=== PATIENT | female | born 1990 | race Hispanic/Latino ===

== ENCOUNTER 2017-08-25 16:47 | Emergency (ER) | payer SELFPAY ==
[2017-08-25 17:40] LABS: APPEARANCE,URINE Cloudy (CLEAR); BILIRUBIN,URINE Negative (NEGATIVE); COLOR,URINE Yellow (YELLOW); GLUCOSE, URINE (UA) Negative (NEGATIVE); KETONES,URINE Negative (NEGATIVE); LEUKOCYTE ESTERASE ,URINE Trace (NEGATIVE); NITRATE,URINE Negative (NEGATIVE); OCCULT BLOOD,URINE Negative (NEGATIVE); PH,URINE 5.5 (5.0-8.0); PROTEIN,URINE Negative (NEGATIVE); UROBILINOGEN,URINE 0.2 mg/dL (0.2-1.0)
[2017-08-25 17:44] LABS: BASOPHILS % (AUTO) 0.5 % (0.0-5.0); EOSINOPHILS % (AUTO) 1.1 % (0.0-8.0); HEMATOCRIT 30.4 % (36-48); LYMPHOCYTES % (AUTO) 22.9 % (21.0-51.0); MEAN CORPUSCULAR HEMOGLOBIN 18.9 pg (27.0-33.0); MEAN CORPUSCULAR HGB CONC 29.2 g/dL (32.0-36.0); MEAN CORPUSCULAR VOLUME 64.8 fL (79-99); MONOCYTES % (AUTO) 5.7 % (3.0-13.0); NEUTROPHILS % (AUTO) 69.8 % (40.0-77.0); PLATELET COUNT (AUTO) 368 K/uL (130-400); RED CELL DISTRIBUTION WIDTH 18.7 % (11.0-15.5); WHITE BLOOD COUNT (AUTO) 11.7 K/uL (4.8-10.8)
[2017-08-25 17:45] LABS: HCG,QUAL RESULT NEGATIVE (NEGATIVE)
[2017-08-25 17:51] LABS: BACTERIA,URINE Few /HPF (None Seen); RBC,URINE 0-1 /HPF (0-1); SQUAMOUS EPITHELIAL CELL,UR Few /LPF (0-2)
[2017-08-25] MEDS ORDERED: ONDANSETRON HCL 4 MG/2 ML VIAL ONE (17:54)
[2017-08-25] MEDS ORDERED: SODIUM CHLORIDE 0.9% 1000ML 1,000 ML IV ONE (17:54)
[2017-08-25 17:55] LABS: CREATININE 0.6 mg/dL (0.5-1.5); POTASSIUM 3.7 mmol/L (3.5-5.1)
[2017-08-25] MEDS ORDERED: MORPHINE SULFATE 8 MG/ML VIAL ONE (17:55)
[2017-08-25 18:00] LABS: ALBUMIN 3.6 g/dL (3.5-5.0); BILIRUBIN,TOTAL 0.3 mg/dL (0.2-1.0); TOTAL PROTEIN, SERUM 8.6 g/dL (6.0-8.3)
[2017-08-25] MEDS ORDERED: IOPAMIDOL-370 75 ML VIAL IV ONE (18:04)
== END 2017-08-25 19:24 | disposition home or self-care (01) ==
LOC: EDH 16:47
DX: N83.291 Other ovarian cyst, right side (principal)
CPT/HCPCS: 36415; 74177; 80053; 81001; 81025; 85025; 96361; 96374; 96375; 99285; J2270; J2405; J7030; Q9967

== ENCOUNTER 2022-05-10 13:15 | Emergency (ER) | payer BC ==
[~2022-05-10] VITALS: Ht 157.5 cm; Wt 122.5 kg
[2022-05-10] MEDS ORDERED: LORAZEPAM 1 MG TABLET PO ONE (13:30)
[2022-05-10 13:41] LABS: BASOPHILS % (AUTO) 0.4 % (0.0-5.0); EOSINOPHILS % (AUTO) 4.1 % (0.0-8.0); HEMATOCRIT 34.6 % (36-48); LYMPHOCYTES % (AUTO) 38.9 % (21.0-51.0); MEAN CORPUSCULAR HEMOGLOBIN 25.9 pg (27.0-33.0); MEAN CORPUSCULAR HGB CONC 30.9 g/dL (32.0-36.0); MEAN CORPUSCULAR VOLUME 83.8 fL (79-99); MONOCYTES % (AUTO) 6.7 % (3.0-13.0); NEUTROPHILS % (AUTO) 49.8 % (40.0-77.0); PLATELET COUNT (AUTO) 278 K/uL (130-400); RED BLOOD CELL COUNT(AUTO) 4.13 MIL/uL (4.00-5.50); RED CELL DISTRIBUTION WIDTH 14.9 % (11.0-15.5); WHITE BLOOD COUNT (AUTO) 7.3 K/uL (4.8-10.8)
[2022-05-10 13:50] LABS: CREATININE 0.7 mg/dL (0.5-1.5); POTASSIUM 3.8 mmol/L (3.5-5.1)
[2022-05-10 13:54] LABS: ALBUMIN 3.6 g/dL (3.5-5.0); TOTAL PROTEIN, SERUM 7.7 g/dL (6.0-8.3)
[2022-05-10] MEDS ORDERED: FAMOTIDINE 20MG TAB PO ONE (14:00)
[2022-05-10] MEDS ORDERED: DICYCLOMINE HCL 10 MG/5 ML ML PO ONE (14:00)
[2022-05-10] MEDS ORDERED: LIDOCAINE HCL 2% VISCOUS 15 ML UDCUP PO ONE (14:00)
[2022-05-10] MEDS ORDERED: MAG/ALUM/SIMETH 30 ML UDCUP PO ONE (14:00)
[2022-05-10 14:18] LABS: APPEARANCE,URINE CLEAR (CLEAR); BILIRUBIN,URINE NEGATIVE (NEGATIVE); COLOR,URINE LIGHT-YELLOW (YELLOW); GLUCOSE, URINE (UA) NEGATIVE (NEGATIVE); KETONES,URINE NEGATIVE (NEGATIVE); LEUKOCYTE ESTERASE ,URINE NEGATIVE Leu/uL (NEGATIVE); NITRATE,URINE NEGATIVE (NEGATIVE); OCCULT BLOOD,URINE LARGE (NEGATIVE); PROTEIN,URINE 20 mg/dL (NEGATIVE); UROBILINOGEN,URINE 0.2 mg/dL (0.2-1.0)
[2022-05-10 14:27] LABS: BACTERIA,URINE RARE /HPF (None Seen); MUCUS,URINE RARE LPF (None Seen); SQUAMOUS EPITHELIAL CELL,UR RARE /HPF (0-2)
[2022-05-10] MEDS ORDERED: ACETAMINOPHEN 500 MG TABLET PO ONE ×2 (15:00)
[2022-05-10 15:52] VITALS: BP 128/72
== END 2022-05-10 15:50 | disposition home or self-care (01) ==
LOC: EDH 13:15
DX: R07.89 Other chest pain (principal); K76.0 Fatty (change of) liver, not elsewhere classified; F41.9 Anxiety disorder, unspecified; E66.01 Morbid (severe) obesity due to excess calories; R79.89 Other specified abnormal findings of blood chemistry; Z68.42 Body mass index [BMI] 45.0-49.9, adult; Z98.890 Other specified postprocedural states
CPT/HCPCS: 36415; 71045; 76705; 80053; 81001; 83690; 84484; 85025; 93005

== ENCOUNTER 2023-01-04 16:51 | Inpatient (IN) | payer BC, OTHER ==
[~2023-01-04] VITALS: Ht 157.5 cm; Wt 122.6 kg
[~2023-01-04 16:51] MED LIST: ETOMIDATE 20MG VIAL IVP ONE; ROCURONIUM BROMIDE 10MG/1ML 5ML VL IV ONE
[2023-01-04] MEDS ORDERED: DEXAMETHASONE SOD PHOSPHATE 4 MG/ML 1ML VIAL IV ONE (17:30)
[2023-01-04] MEDS ORDERED: KETOROLAC 30MG VIAL (30MG/ML) IVP ONE (17:30)
[2023-01-04] MEDS ORDERED: 0.9%NACL 1000ML 1,000 ML IV ONE (17:30)
[2023-01-04] MEDS ORDERED: CLINDAMYCIN IVPB 900MG/50ML 50 ML IV ONE (17:30)
[2023-01-04 17:35] LABS: BASOPHILS % (AUTO) 0.2 % (0.0-5.0); EOSINOPHILS % (AUTO) 0.2 % (0.0-8.0); HEMATOCRIT 35.8 % (36-48); LYMPHOCYTES % (AUTO) 10.6 % (21.0-51.0); MEAN CORPUSCULAR HEMOGLOBIN 22.7 pg (27.0-33.0); MEAN CORPUSCULAR HGB CONC 29.1 g/dL (32.0-36.0); MONOCYTES % (AUTO) 5.6 % (3.0-13.0); NEUTROPHILS % (AUTO) 82.8 % (40.0-77.0); PLATELET COUNT (AUTO) 398 K/uL (130-400); RED BLOOD CELL COUNT(AUTO) 4.59 MIL/uL (4.00-5.50); RED CELL DISTRIBUTION WIDTH 15.3 % (11.0-15.5); WHITE BLOOD COUNT (AUTO) 16.9 K/uL (4.8-10.8)
[2023-01-04 17:42] LABS: CREATININE 0.6 mg/dL (0.5-1.5); POTASSIUM 3.3 mmol/L (3.5-5.1)
[2023-01-04 17:47] LABS: ALBUMIN 3.4 g/dL (3.5-5.0); TOTAL PROTEIN, SERUM 8.8 g/dL (6.0-8.3)
[2023-01-04] MEDS ORDERED: PROPOFOL 1000 MG/100 ML 100 ML IV ONE ×2 (19:08→21:40)
[2023-01-04] MEDS: ETOMIDATE 20MG VIAL IVP SCH (19:24)
[2023-01-04] MEDS ORDERED: FENTANYL 1000MCG+NS 100ML 100 ML IV ONE ×2 (19:41→23:48)
[2023-01-04] MEDS ORDERED: EPINEPHRINE PF 1MG (1:1,000) 1 MG/ML AMP IM ONE ×2 (20:00→23:00)
[2023-01-04] MEDS ORDERED: DiphenhydrAMINE HCL 50 MG/ML VIAL IV ONE (20:00)
[2023-01-04] MEDS ORDERED: CEFTRIAXONE 1G VIAL IVPB ONE (20:00)
[2023-01-04 20:51] LABS: APPEARANCE,URINE CLEAR (CLEAR); BILIRUBIN,URINE NEGATIVE (NEGATIVE); COLOR,URINE YELLOW (YELLOW); GLUCOSE, URINE (UA) NEGATIVE (NEGATIVE); KETONES,URINE 150 mg/dL (NEGATIVE); LEUKOCYTE ESTERASE ,URINE NEGATIVE Leu/uL (NEGATIVE); NITRATE,URINE NEGATIVE (NEGATIVE); OCCULT BLOOD,URINE NEGATIVE (NEGATIVE); PH,URINE 6.5 (5.0-8.0); PROTEIN,URINE 70 mg/dL (NEGATIVE)
[2023-01-04 20:51] LABS: ABG BASE EXCESS -5.6 mmol/L (-2.0-3.0); ABG HCO3 19.8 mmol/L (21.0-28.0); ABG OXYGEN SATURATION 98.4 % (95.0-99.0); ABG PCO2 39 mmHg (32-45)
[2023-01-04] MEDS ORDERED: IOHEXOL-350 50ML VIAL IV ONE (20:51)
[2023-01-04 20:53] LABS: HCG,QUALITATIVE URINE NEGATIVE (NEGATIVE)
[2023-01-04 20:55] LABS: MUCUS,URINE RARE LPF (None Seen); SQUAMOUS EPITHELIAL CELL,UR RARE /HPF (0-2)
[2023-01-04] MEDS ORDERED: ROCURONIUM BROMIDE 10MG/1ML 5ML VL ONE (21:10)
[2023-01-04] MEDS ORDERED: MIDAZOLAM 50MG-0.9% NS 50ML 50 ML IV SCH (21:30)
[2023-01-04] MEDS ORDERED: MIDAZOLAM 100MG-0.9% NS 100ML 100ML BAG IV ONE (22:00)
[2023-01-05] VITALS (61 sets, daily range): BP systolic 114–156; BP diastolic 54–90
[2023-01-05] MEDS ORDERED: ONDANSETRON 4MG INJ IV PRN
[2023-01-05] MEDS ORDERED: 0.9%NACL 50ML IV SCH (00:30)
[2023-01-05 01:00] LABS: MAGNESIUM 2.1 mg/dL (1.80-2.40)
[2023-01-05 01:03] LABS: INR 1.05 (0.85-1.15); PROTHROMBIN TIME 11.4 SEC (9.6-11.6)
[2023-01-05 01:32] LABS: HEMOGLOBIN A1C 5.7 % (4.0-6.0)
[2023-01-05] MEDS: 0.9%NACL 1000ML 1,000 ML IV SCH ×2 (01:43→08:52)
[2023-01-05] MEDS: ZOSYN 3.375GM +NS 50ML IVPB SCH ×4 (01:43→23:56)
[2023-01-05] MEDS: POTASSIUM CHLORIDE 20MEQ/100ML 100 ML IV SCH (02:00)
[2023-01-05 04:43] LABS: ABG BASE EXCESS -2.6 mmol/L (-2.0-3.0); ABG HCO3 22.9 mmol/L (21.0-28.0); ABG OXYGEN SATURATION 97.2 % (95.0-99.0); ABG PCO2 42 mmHg (32-45)
[2023-01-05] MEDS ORDERED: DEXAMETHASONE SOD PHOSPHATE 4 MG/ML 1ML VIAL IV SCH (06:00)
[2023-01-05] MEDS ORDERED: FENTANYL 1000MCG+NS 100ML 100 ML IV ONE ×3 (07:17→23:54)
[2023-01-05 07:22] LABS: BASOPHILS % (AUTO) 0.1 % (0.0-5.0); HEMATOCRIT 28.9 % (36-48); LYMPHOCYTES % (AUTO) 9.7 % (21.0-51.0); MEAN CORPUSCULAR HEMOGLOBIN 23.1 pg (27.0-33.0); MEAN CORPUSCULAR HGB CONC 29.1 g/dL (32.0-36.0); MEAN CORPUSCULAR VOLUME 79.6 fL (79-99); MONOCYTES % (AUTO) 3.3 % (3.0-13.0); NEUTROPHILS % (AUTO) 86.5 % (40.0-77.0); PLATELET COUNT (AUTO) 316 K/uL (130-400); RED BLOOD CELL COUNT(AUTO) 3.63 MIL/uL (4.00-5.50); RED CELL DISTRIBUTION WIDTH 15.4 % (11.0-15.5)
[2023-01-05] MEDS ORDERED: MIDAZOLAM 100MG-0.9% NS 100ML 100ML BAG IV ONE (07:30)
[2023-01-05] MEDS ORDERED: FENTANYL CITRATE PF 0.05 MG/ML 1,000 MCG in 0.9%NACL 100ML 100 ML IVPB SCH (07:30)
[2023-01-05 07:38] LABS: ALBUMIN 2.5 g/dL (3.5-5.0); CREATININE 0.4 mg/dL (0.5-1.5); MAGNESIUM 2.4 mg/dL (1.80-2.40); POTASSIUM 3.8 mmol/L (3.5-5.1); TOTAL PROTEIN, SERUM 7.3 g/dL (6.0-8.3)
[2023-01-05] MEDS: FAMOTIDINE 20MG VIAL IV SCH ×2 (08:51→20:54)
[2023-01-05] MEDS: ENOXAPARIN SODIUM 40 MG/0.4 ML SYRINGE SQ SCH (08:52)
[2023-01-05 10:14] LABS: B-TYPE NATRIURETIC PEPTIDE 10 pg/mL (0-100)
[2023-01-05 10:33] LABS: ERYTHROCYTE SEDIMENTATION RATE 20 MM/HR (0-20)
[2023-01-05] MEDS: INSULIN HUMULIN R 100 UNIT/ML 3ML SQ SCH ×2 (11:38→16:42)
[2023-01-05] MEDS: DEXAMETHASONE SOD PHOSPHATE 4 MG/ML 1ML VIAL IVP SCH (12:18)
[2023-01-05] MEDS ORDERED: MIDAZOLAM 50MG-0.9% NS 50ML 50 ML IV SCH (18:00)
[2023-01-05] MEDS ORDERED: FENTANYL 1000MCG+NS 100ML 100 ML IV SCH (18:00)
[2023-01-05] MEDS: ETOMIDATE 20MG VIAL IVP SCH (19:26)
[2023-01-06] VITALS (47 sets, daily range): BP systolic 123–177; BP diastolic 65–107
[2023-01-06 04:23] LABS: BASOPHILS % (AUTO) 0.1 % (0.0-5.0); HEMATOCRIT 31.1 % (36-48); LYMPHOCYTES % (AUTO) 8.9 % (21.0-51.0); MEAN CORPUSCULAR HEMOGLOBIN 22.8 pg (27.0-33.0); MEAN CORPUSCULAR HGB CONC 28.6 g/dL (32.0-36.0); MEAN CORPUSCULAR VOLUME 79.5 fL (79-99); MONOCYTES % (AUTO) 5.4 % (3.0-13.0); NEUTROPHILS % (AUTO) 85.1 % (40.0-77.0); PLATELET COUNT (AUTO) 408 K/uL (130-400); RED BLOOD CELL COUNT(AUTO) 3.91 MIL/uL (4.00-5.50); RED CELL DISTRIBUTION WIDTH 15.6 % (11.0-15.5); WHITE BLOOD COUNT (AUTO) 15.5 K/uL (4.8-10.8)
[2023-01-06 04:37] LABS: ALBUMIN 2.6 g/dL (3.5-5.0); CREATININE 0.6 mg/dL (0.5-1.5); POTASSIUM 3.7 mmol/L (3.5-5.1); TOTAL PROTEIN, SERUM 7.6 g/dL (6.0-8.3)
[2023-01-06 04:43] LABS: ABG BASE EXCESS 0.2 mmol/L (-2.0-3.0); ABG HCO3 25.3 mmol/L (21.0-28.0); ABG OXYGEN SATURATION 97.2 % (95.0-99.0); ABG PCO2 42 mmHg (32-45)
[2023-01-06] MEDS: INSULIN HUMULIN R 100 UNIT/ML 3ML SQ SCH ×5 (06:00→23:45)
[2023-01-06] MEDS: ENOXAPARIN SODIUM 40 MG/0.4 ML SYRINGE SQ SCH (08:11)
[2023-01-06] MEDS: FAMOTIDINE 20MG VIAL IV SCH ×2 (08:11→20:16)
[2023-01-06] MEDS: ZOSYN 3.375GM +NS 50ML IVPB SCH ×2 (08:11→15:54)
[2023-01-06] MEDS ORDERED: EPINEPHRINE PF 1MG (1:1,000) 1 MG/ML AMP ONE (12:44)
[2023-01-06] MEDS ORDERED: RACEPINEPHRINE HCL 2.25% 0.5 ML NEB SOLN NEB PRN (13:00)
[2023-01-06] MEDS: DEXAMETHASONE SOD PHOSPHATE 4 MG/ML 1ML VIAL IVP SCH (13:14)
[2023-01-06] MEDS: ETOMIDATE 20MG VIAL IVP SCH (19:44)
[2023-01-07] VITALS (15 sets, daily range): BP systolic 116–164; BP diastolic 65–87
[2023-01-07] MEDS: ZOSYN 3.375GM +NS 50ML IVPB SCH ×3 (00:04→15:19)
[2023-01-07 03:40] LABS: BASOPHILS % (AUTO) 0.1 % (0.0-5.0); HEMATOCRIT 30.8 % (36-48); LYMPHOCYTES % (AUTO) 16.9 % (21.0-51.0); MEAN CORPUSCULAR HEMOGLOBIN 23.1 pg (27.0-33.0); MEAN CORPUSCULAR HGB CONC 29.5 g/dL (32.0-36.0); MEAN CORPUSCULAR VOLUME 78.2 fL (79-99); MONOCYTES % (AUTO) 5.1 % (3.0-13.0); NEUTROPHILS % (AUTO) 77.2 % (40.0-77.0); PLATELET COUNT (AUTO) 367 K/uL (130-400); RED BLOOD CELL COUNT(AUTO) 3.94 MIL/uL (4.00-5.50); RED CELL DISTRIBUTION WIDTH 15.3 % (11.0-15.5)
[2023-01-07 04:01] LABS: ALBUMIN 2.6 g/dL (3.5-5.0); CREATININE 0.5 mg/dL (0.5-1.5); MAGNESIUM 2.2 mg/dL (1.80-2.40); POTASSIUM 3.8 mmol/L (3.5-5.1); TOTAL PROTEIN, SERUM 7.3 g/dL (6.0-8.3)
[2023-01-07] MEDS: INSULIN HUMULIN R 100 UNIT/ML 3ML SQ SCH ×3 (05:31→17:15)
[2023-01-07] MEDS: POTASSIUM CHLORIDE 20MEQ/100ML 100 ML IV SCH (05:34)
[2023-01-07] MEDS: FAMOTIDINE 20MG VIAL IV SCH ×2 (09:02→20:07)
[2023-01-07] MEDS: ENOXAPARIN SODIUM 40 MG/0.4 ML SYRINGE SQ SCH (09:02)
[2023-01-07] MEDS: DEXAMETHASONE SOD PHOSPHATE 4 MG/ML 1ML VIAL IVP SCH (11:17)
[2023-01-07] MEDS: ETOMIDATE 20MG VIAL IVP SCH (19:12)
[2023-01-08] VITALS: BP 147/69
[2023-01-08] MEDS: ZOSYN 3.375GM +NS 50ML IVPB SCH ×2 (00:56→08:24)
[2023-01-08 04:00] VITALS: BP 139/65
[2023-01-08 04:18] LABS: BASOPHILS % (AUTO) 0.1 % (0.0-5.0); EOSINOPHILS % (AUTO) 0.1 % (0.0-8.0); HEMATOCRIT 32.8 % (36-48); LYMPHOCYTES % (AUTO) 26.4 % (21.0-51.0); MEAN CORPUSCULAR HGB CONC 29.3 g/dL (32.0-36.0); MEAN CORPUSCULAR VOLUME 78.7 fL (79-99); MONOCYTES % (AUTO) 6.2 % (3.0-13.0); NEUTROPHILS % (AUTO) 66.2 % (40.0-77.0); PLATELET COUNT (AUTO) 368 K/uL (130-400); RED BLOOD CELL COUNT(AUTO) 4.17 MIL/uL (4.00-5.50); RED CELL DISTRIBUTION WIDTH 15.2 % (11.0-15.5); WHITE BLOOD COUNT (AUTO) 11.8 K/uL (4.8-10.8)
[2023-01-08 04:51] LABS: ALBUMIN 2.5 g/dL (3.5-5.0); CREATININE 0.6 mg/dL (0.5-1.5); MAGNESIUM 2.3 mg/dL (1.80-2.40); POTASSIUM 3.7 mmol/L (3.5-5.1); THYROID STIMULATING HORMONE 0.47 uIU/mL (0.36-3.74); TOTAL PROTEIN, SERUM 7.1 g/dL (6.0-8.3)
[2023-01-08] MEDS: INSULIN HUMULIN R 100 UNIT/ML 3ML SQ SCH ×3 (05:32→12:00)
[2023-01-08 08:00] VITALS: BP 159/59
[2023-01-08] MEDS: FAMOTIDINE 20MG VIAL IV SCH (08:24)
[2023-01-08] MEDS: ENOXAPARIN SODIUM 40 MG/0.4 ML SYRINGE SQ SCH (08:24)
[2023-01-08] MEDS: DEXAMETHASONE SOD PHOSPHATE 4 MG/ML 1ML VIAL IVP SCH (12:00)
== END 2023-01-08 12:10 | disposition home or self-care (01) | DRG 871 ==
LOC: EDH 16:51 → EDHIP 16:52 → 2BH 01-05 08:33
PROVIDERS: ADMIT Hospitalist; ATTEND Hospitalist
PROC: 5A1945Z Respiratory Ventilation, 24-96 Consecutive Hours (ICD-10-PCS; principal; 2023-01-04)
PROC: 0BH17EZ Insertion of Endotracheal Airway into Trachea, Via Natural or Artificial Opening (ICD-10-PCS; 2023-01-04)
DX: A40.9 Streptococcal sepsis, unspecified (principal); E43 Unspecified severe protein-calorie malnutrition; J96.01 Acute respiratory failure with hypoxia; Z20.822 Contact with and (suspected) exposure to COVID-19; Z68.42 Body mass index [BMI] 45.0-49.9, adult; T78.3XXA Angioneurotic edema, initial encounter; R65.20 Severe sepsis without septic shock; E66.01 Morbid (severe) obesity due to excess calories; D50.9 Iron deficiency anemia, unspecified; I34.0 Nonrheumatic mitral (valve) insufficiency; J02.0 Streptococcal pharyngitis; Z98.891 History of uterine scar from previous surgery
CPT/HCPCS: 31500; 36415; 36600; 70491; 71045; 80053; 81001; 81025; 82435; 82803; 82947; 82948; 83036; 83605; 83735; 83880; 84132; 84145; 84295; 84443; 84703; 85018; 85025; 85610; 85651; 85730; 86140; 87040; 87071; 87205; 87635; 87804; 87880; 93306; 94002; 94003; 94150; 94640; 99291; 99292; C9803; G0378; J0171; J0696; J1100; J1650; J1885; J2543; J2704; J3010; J3480; J3490; J7030; Q9967

== ENCOUNTER 2023-06-29 13:19 | Emergency (ER) | payer OTHER ==
[~2023-06-29] VITALS: Ht 157.5 cm; Wt 124.7 kg
[2023-06-29 14:08] VITALS: BP 172/104; PULSE 89; RESP 18
[2023-06-29 15:20] LABS: RAPID GROUP A STREP negative (NEGATIVE)
[2023-06-29 15:29] LABS: SARS-CoV-2, RNA, NAAT NEGATIVE SARS CoV-2 (NEGATIVE)
[2023-06-29 15:36] LABS: INFLUENZA TYPE A Negative For Type A (NEGATIVE); INFLUENZA TYPE B Negative For Type B (NEGATIVE)
[2023-06-29] MEDS ORDERED: IBUP-2077 PO (17:09)
[2023-06-29] MEDS ORDERED: PRED5TAB PO (17:09)
[2023-06-29] MEDS ORDERED: CLIN-141 PO (17:09)
[2023-06-29] MEDS ORDERED: KETOROLAC 30MG VIAL (30MG/ML) IM ONE (17:30)
[2023-06-29] MEDS ORDERED: DEXAMETHASONE SOD PHOSPHATE 4 MG/ML 1ML VIAL IM ONE (17:30)
== END 2023-06-29 18:49 | disposition home or self-care (01) ==
LOC: EDH 13:19
DX: J03.80 Acute tonsillitis due to other specified organisms (principal); B96.89 Other specified bacterial agents as the cause of diseases classified elsewhere; R13.10 Dysphagia, unspecified; R59.1 Generalized enlarged lymph nodes; Z20.822 Contact with and (suspected) exposure to COVID-19; Z90.49 Acquired absence of other specified parts of digestive tract; Z79.899 Other long term (current) drug therapy; Z98.890 Other specified postprocedural states; Z88.8 Allergy status to other drugs, medicaments and biological substances
CPT/HCPCS: 99284; 87635; 87880; 87804 ×2; 96372 ×2; J1100; C9803; J1885

== ENCOUNTER 2023-07-02 07:29 | Inpatient (IN) | payer OTHER ==
[~2023-07-02] VITALS: Ht 157.5 cm; Wt 122.9 kg
[~2023-07-02 07:29] MED LIST changes: +CLIN-141 PO; -ETOMIDATE 20MG VIAL IVP ONE; +IBUP-2077 PO; +PRED5TAB PO; -ROCURONIUM BROMIDE 10MG/1ML 5ML VL IV ONE
[2023-07-02] MEDS ORDERED: DEXAMETHASONE SOD PHOSPHATE 4 MG/ML 1ML VIAL IVP ONE (08:30)
[2023-07-02] MEDS ORDERED: FAMOTIDINE 20MG VIAL IV ONE (08:30)
[2023-07-02] MEDS ORDERED: KETOROLAC 30MG VIAL (30MG/ML) IVP ONE (08:30)
[2023-07-02] MEDS ORDERED: 0.9%NACL 1000ML 1,000 ML IV ONE (09:30)
[2023-07-02 09:44] LABS: BASOPHILS # (AUTO) 0.02 K/uL (0.00-0.20); BASOPHILS % (AUTO) 0.2 % (0.0-5.0); EOSINOPHILS # (AUTO) 0.06 K/uL (0.00-0.70); EOSINOPHILS % (AUTO) 0.7 % (0.0-8.0); HEMATOCRIT 36.4 % (36-48); IMMATURE GRANULOCYTE ABSOLUTE 0.05 K/uL (0-1); LYMPHOCYTES # (AUTO) 0.8 K/uL (1.0-4.8); LYMPHOCYTES % (AUTO) 9.7 % (21.0-51.0); MEAN CORPUSCULAR HEMOGLOBIN 23.4 pg (27.0-33.0); MEAN CORPUSCULAR HGB CONC 29.7 g/dL (32.0-36.0); MEAN CORPUSCULAR VOLUME 78.8 fL (79-99); MONOCYTES # (AUTO) 0.5 K/uL (0.1-1.0); MONOCYTES % (AUTO) 6.2 % (3.0-13.0); NEUTROPHILS % (AUTO) 82.6 % (40.0-77.0); PLATELET COUNT (AUTO) 289 K/uL (130-400); RED BLOOD CELL COUNT(AUTO) 4.62 MIL/uL (4.00-5.50); RED CELL DISTRIBUTION WIDTH 16.8 % (11.0-15.5); WHITE BLOOD COUNT (AUTO) 8.4 K/uL (4.8-10.8)
[2023-07-02 09:52] LABS: CREATININE 0.5 mg/dL (0.5-1.5); POTASSIUM 3.4 mmol/L (3.5-5.1)
[2023-07-02] MEDS ORDERED: IOHEXOL-350 75 ML VIAL IV ONE (10:32)
[2023-07-02] MEDS ORDERED: LEVOFLOXACIN 750 MG/D5W 150ML BAG IV ONE (13:00)
[2023-07-02] MEDS ORDERED: POTASSIUM CHLORIDE 20MEQ/100ML 100 ML IV PRN (15:00)
[2023-07-02] MEDS ORDERED: ACETAMINOPHEN 325 MG TAB PO PRN ×2 (15:00)
[2023-07-02] MEDS ORDERED: ONDANSETRON 4MG INJ IV PRN (15:00)
[2023-07-02] MEDS ORDERED: DiphenhydrAMINE HCL 50 MG/ML VIAL IV PRN (15:00)
[2023-07-02] MEDS ORDERED: LABETALOL 20MG VIAL IV PRN (15:00)
[2023-07-02] MEDS ORDERED: KCL 20 MEQ ERTAB PO PRN (15:00)
[2023-07-02] MEDS: 0.9%NACL 1000ML 1,000 ML IV SCH (15:42)
[2023-07-02 16:03] LABS: INR 0.96 (0.85-1.15); PROTHROMBIN TIME 11.2 SEC (9.6-11.6)
[2023-07-02 16:05] LABS: PARTIAL THROMBOPLASTIN TIME 29.8 SEC (26.3-35.5)
[2023-07-02 20:25] VITALS: O2SAT 93
[2023-07-02 23:30] VITALS: BP 145/78; PULSE 76; RESP 19
[2023-07-03] VITALS (8 sets, daily range): BP systolic 120–142; BP diastolic 62–82; PULSE 52–76; RESP 18–20; O2SAT 98–100
[2023-07-03] MEDS: 0.9%NACL 1000ML 1,000 ML IV SCH ×4 (00:47→23:45)
[2023-07-03] MEDS: MORPHINE 2 MG SYG IV PRN ×2 (01:16→06:03)
[2023-07-03 05:39] LABS: BASOPHILS # (AUTO) 0.01 K/uL (0.00-0.20); BASOPHILS % (AUTO) 0.1 % (0.0-5.0); EOSINOPHILS # (AUTO) 0.04 K/uL (0.00-0.70); EOSINOPHILS % (AUTO) 0.4 % (0.0-8.0); HEMATOCRIT 33.8 % (36-48); IMMATURE GRANULOCYTE ABSOLUTE 0.04 K/uL (0-1); LYMPHOCYTES # (AUTO) 2.1 K/uL (1.0-4.8); LYMPHOCYTES % (AUTO) 23.7 % (21.0-51.0); MEAN CORPUSCULAR HEMOGLOBIN 22.8 pg (27.0-33.0); MEAN CORPUSCULAR VOLUME 78.8 fL (79-99); MONOCYTES # (AUTO) 0.8 K/uL (0.1-1.0); NEUTROPHILS # (AUTO) 5.9 K/uL (1.8-7.7); NEUTROPHILS % (AUTO) 66.4 % (40.0-77.0); PLATELET COUNT (AUTO) 287 K/uL (130-400); RED BLOOD CELL COUNT(AUTO) 4.29 MIL/uL (4.00-5.50); RED CELL DISTRIBUTION WIDTH 16.9 % (11.0-15.5); WHITE BLOOD COUNT (AUTO) 8.9 K/uL (4.8-10.8)
[2023-07-03 05:49] LABS: ALBUMIN 2.8 g/dL (3.5-5.0); BILIRUBIN,TOTAL 0.2 mg/dL (0.2-1.0); CREATININE 0.6 mg/dL (0.5-1.5); POTASSIUM 3.7 mmol/L (3.5-5.1); TOTAL PROTEIN, SERUM 7.4 g/dL (6.0-8.3)
[2023-07-03] MEDS ORDERED: MORPHINE 2 MG SYG IVP ONE (06:30)
[2023-07-03 06:49] LABS: ERYTHROCYTE SEDIMENTATION RATE 50 MM/HR (0-20)
[2023-07-03] MEDS ORDERED: MAGNESIUM 2GM PREMIX 50ML 50 ML IV PRN (07:30)
[2023-07-03] MEDS ORDERED: DEXAMETHASONE SOD PHOSPHATE 4 MG/ML 1ML VIAL IV ONE (07:30)
[2023-07-03] MEDS: LEVOFLOXACIN 750 MG/D5W 150ML BAG IV SCH (08:51)
[2023-07-03] MEDS: DEXAMETHASONE SOD PHOSPHATE 4 MG/ML 1ML VIAL IV SCH ×3 (11:36→23:40)
[2023-07-03] MEDS: POTASSIUM CHLORIDE 10% ELIXIR 20 MEQ/15 ML UDCUP PO PRN ×2 (11:37→17:31)
[2023-07-04] MEDS: DEXAMETHASONE SOD PHOSPHATE 4 MG/ML 1ML VIAL IV SCH (05:24)
[2023-07-04 05:38] LABS: BASOPHILS # (AUTO) 0.01 K/uL (0.00-0.20); BASOPHILS % (AUTO) 0.1 % (0.0-5.0); HEMATOCRIT 34.7 % (36-48); IMMATURE GRANULOCYTE ABSOLUTE 0.03 K/uL (0-1); LYMPHOCYTES # (AUTO) 1.7 K/uL (1.0-4.8); LYMPHOCYTES % (AUTO) 17.7 % (21.0-51.0); MEAN CORPUSCULAR HEMOGLOBIN 23.2 pg (27.0-33.0); MEAN CORPUSCULAR VOLUME 77.3 fL (79-99); MONOCYTES # (AUTO) 0.5 K/uL (0.1-1.0); MONOCYTES % (AUTO) 4.8 % (3.0-13.0); NEUTROPHILS # (AUTO) 7.2 K/uL (1.8-7.7); NEUTROPHILS % (AUTO) 77.1 % (40.0-77.0); PLATELET COUNT (AUTO) 315 K/uL (130-400); RED BLOOD CELL COUNT(AUTO) 4.49 MIL/uL (4.00-5.50); RED CELL DISTRIBUTION WIDTH 16.9 % (11.0-15.5); WHITE BLOOD COUNT (AUTO) 9.3 K/uL (4.8-10.8)
[2023-07-04 05:43] VITALS: BP 119/51; PULSE 57; RESP 21
[2023-07-04 05:54] LABS: ALBUMIN 2.8 g/dL (3.5-5.0); BILIRUBIN,TOTAL 0.2 mg/dL (0.2-1.0); CREATININE 0.6 mg/dL (0.5-1.5); MAGNESIUM 2.1 mg/dL (1.80-2.40); TOTAL PROTEIN, SERUM 7.4 g/dL (6.0-8.3)
[2023-07-04 08:00] VITALS: BP 149/75; PULSE 60; RESP 18; O2SAT 98
[2023-07-04] MEDS: 0.9%NACL 1000ML 1,000 ML IV SCH (08:39)
[2023-07-04] MEDS: LEVOFLOXACIN 750 MG/D5W 150ML BAG IV SCH (08:41)
[2023-07-04 12:00] VITALS: BP 134/71; PULSE 56; RESP 18
[2023-07-04 16:00] VITALS: BP 122/73; PULSE 70; RESP 18
[2023-07-04 20:00] VITALS: BP 132/73; PULSE 69; RESP 18
[2023-07-04] MEDS: DEXAMETHASONE SOD PHOSPHATE 4 MG/ML 1ML VIAL IVP SCH (20:30)
[2023-07-04] MEDS: MORPHINE 2 MG SYG IV PRN (22:50)
[2023-07-05] VITALS (7 sets, daily range): BP systolic 121–143; BP diastolic 64–79; PULSE 51–81; RESP 17–20; O2SAT 97–98
[2023-07-05 05:07] LABS: BASOPHILS # (AUTO) 0.01 K/uL (0.00-0.20); BASOPHILS % (AUTO) 0.1 % (0.0-5.0); HEMATOCRIT 37.5 % (36-48); IMMATURE GRANULOCYTE ABSOLUTE 0.04 K/uL (0-1); LYMPHOCYTES # (AUTO) 2.5 K/uL (1.0-4.8); LYMPHOCYTES % (AUTO) 23.2 % (21.0-51.0); MEAN CORPUSCULAR HEMOGLOBIN 23.2 pg (27.0-33.0); MEAN CORPUSCULAR HGB CONC 29.3 g/dL (32.0-36.0); MEAN CORPUSCULAR VOLUME 78.9 fL (79-99); MONOCYTES # (AUTO) 0.6 K/uL (0.1-1.0); NEUTROPHILS # (AUTO) 7.4 K/uL (1.8-7.7); NEUTROPHILS % (AUTO) 70.3 % (40.0-77.0); PLATELET COUNT (AUTO) 319 K/uL (130-400); RED BLOOD CELL COUNT(AUTO) 4.75 MIL/uL (4.00-5.50); RED CELL DISTRIBUTION WIDTH 16.5 % (11.0-15.5); WHITE BLOOD COUNT (AUTO) 10.6 K/uL (4.8-10.8)
[2023-07-05 05:22] LABS: ALBUMIN 2.9 g/dL (3.5-5.0); BILIRUBIN,TOTAL 0.4 mg/dL (0.2-1.0); CREATININE 0.6 mg/dL (0.5-1.5); MAGNESIUM 2.1 mg/dL (1.80-2.40); POTASSIUM 3.9 mmol/L (3.5-5.1); TOTAL PROTEIN, SERUM 7.6 g/dL (6.0-8.3)
[2023-07-05] MEDS: LEVOFLOXACIN 750 MG/D5W 150ML BAG IV SCH (06:17)
[2023-07-05] MEDS ORDERED: LEVO750T39 PO (10:06)
[2023-07-05] MEDS ORDERED: METH4TAB3 PO (10:06)
[2023-07-05] MEDS: DEXAMETHASONE SOD PHOSPHATE 4 MG/ML 1ML VIAL IVP SCH (10:09)
== END 2023-07-05 17:50 | disposition home or self-care (01) | DRG 153 ==
LOC: EDH 07:29 → EDHIP 07:30 → 3CH 22:07
PROVIDERS: ADMIT Hospitalist; ATTEND Hospitalist
DX: J36 Peritonsillar abscess (principal); E44.0 Moderate protein-calorie malnutrition; Z68.42 Body mass index [BMI] 45.0-49.9, adult; D64.9 Anemia, unspecified
CPT/HCPCS: 36415; 70491; 80048; 80053; 83735; 84702; 85025; 85610; 85651; 85730; 86140; G0378; J1100; J1885; J1956; J2270; J3490; J7030; Q9967

== ENCOUNTER 2025-06-24 20:55 | Emergency (ER) | payer BC ==
[~2025-06-24] VITALS: Ht 157.5 cm; Wt 126.1 kg
[~2025-06-24 20:55] MED LIST changes: -CLIN-141 PO; +LEVO750T90 PO; +METH4TAB3 PO; -PRED5TAB PO
--- NOTE | 2025-06-24 20:57 | NUR ---
UA CUP PROVIDED
--- NOTE | 2025-06-24 20:58 | NUR ---
COVID, FLU AND STREP SWABS COLLECTED AND SENT
[2025-06-24 21:17] LABS: RAPID GROUP A STREP negative (NEGATIVE)
--- NOTE | 2025-06-24 21:23 | NUR ---
UA COLLECTED AND SENT
[2025-06-24 21:27] LABS: INFLUENZA TYPE A Negative For Type A (NEGATIVE); INFLUENZA TYPE B Negative For Type B (NEGATIVE)
[2025-06-24 21:33] LABS: ADD UA MICROSCOPIC YES; APPEARANCE,URINE HAZY (CLEAR); GLUCOSE, URINE (UA) NEGATIVE (NEGATIVE); LEUKOCYTE ESTERASE ,URINE NEGATIVE Leu/uL (NEGATIVE); NITRATE,URINE NEGATIVE (NEGATIVE); OCCULT BLOOD,URINE NEGATIVE (NEGATIVE)
[2025-06-24 21:36] LABS: SQUAMOUS EPITHELIAL CELL,UR MOD /HPF (0-2)
[2025-06-24 22:51] LABS: SARS-CoV-2, RNA, NAAT NEGATIVE SARS CoV-2 (NEGATIVE)
[2025-06-24] MEDS: 0.9%NACL 1000ML 1,000 ML IV ONE (23:05)
[2025-06-24] MEDS ORDERED: METH4TAB3 PO (23:17)
[2025-06-24] MEDS ORDERED: AZIT250T9 PO (23:17)
--- NOTE | 2025-06-24 23:19 | ERN ---
General Chief Complaint: Influenza Stated Complaint: FEVER, COUGH Time Seen by MD: 21:11 Time Seen by Midlevel: 21:11 Source: patient History of Present Illness Initial Comments Patient is a 34-year-old female presenting to the emergency department with flu- like symptoms that started yesterday. Symptoms consist of a sore throat, chills, body aches, and generalized body weakness. She reports subjective fevers at home of 101. She also reports a cough with green sputum. Allergies: Coded Allergies: Penicillins (Unverified Allergy, Severe, THROAT SWELLING, 01/07/23) Home Meds Active Scripts Levofloxacin (Levofloxacin) 750 Mg Tablet, 750 MG PO DAILY for 10 Days, #10 TAB Prov:JONO TRACEY [facility] 07/05/23 Methylprednisolone (Medrol) 4 Mg Tab.ds.pk, 4 MG PO DAILY for 6 Days, #21 MG Prov:JONO TRACEY [facility] 07/05/23 Ibuprofen (Ibuprofen 800 mg Tab) 800 Mg Tab, 800 MG PO TID PRN for PAIN, #30 TAB Prov:CIARAN BLISS Jr. [facility] 06/29/23 Past Medical History Past Medical History: Asthma, Hypertension, Other Medical History Other: STREP INFECTION. Morbidly obese Past Surgical History: Hysterectomy, Cholecystectomy, Surgical History Other: h/o intubation, right ovarian cyst Family History Family History: HTN, Negative Social History Social History: Drugs, Lives with family Female( History) : 4 Para: 4 Aborts: 0 ROS Dictation CONSTITUTIONAL: Negative except for HPI HEAD/FACE: Negative except for HPI EENT: Negative except for HPI RESPIRATORY: Negative except for HPI GASTROINTESTINAL/ABDOMINAL: Negative except for HPI GENITOURINARY: Negative except for HPI MUSCULOSKELETAL: Negative except for HPI INTEGUMENTARY: Negative except for HPI NEUROLOGICAL/PSYCH: Negative except for HPI HEMATOLOGIC/LYMPHATIC: Negative except for HPI All Systems Negative, Except as noted above. 13 point review of systems assessed and all negative except for above. Physical Exam Physical Exam Dictation Vital Signs reviewed General Appearance: Alert, oriented x 3, no acute distress, well developed, nourished. Head and Face: non-traumatic. Eyes: PERRL, pink conjunctivas, eyelid no trauma, anterior chamber with arcus senilis. Ears: Pinnas intact and no signs of trauma or erythema ear canals clear and no discharge TM no erythema Nose: No discharge, no bleeding. Oropharynx: Mouth normal, tongue pink, pharynx clear,no erythema, tonsils no exudates, no abscesses noted, mucous membrane moist Neck: Supple, non-tender, no thyromegaly, no masses, no JVD, no bruits Breast:Deferred Chest:No tenderness, no crepitus, no paradoxical movement, no retractions Lungs:Clear, well-ventilated, symmetric, no rales, no wheezing, no rhonchi, no stridor, good breath sounds bilaterally Heart: Regular rate, regular rhythm, no murmur, no gallops Vascular: no peripheral edema, Abdomen: Soft, positive bowel sounds, nondistended, no guarding, nontender, no rebound, no masses no hepatomegaly, no splenomegaly, no Man's sign, no hernias. Rectal: Deferred Genital: Deferred Neurological: Normal speech, motor function intact, sensory function intact Musculoskeletal: Neck nontender, full range of motion, back nontender, full range of motion, Extremities: nontender, full range of motion Skin: Color pink, dry, no turgor, no rash, no lacerations, no abrasions, no contusions. Lymphatic: Deferred Results Laboratory and Microbiology Lab and Micro Result Laboratory Tests Test 06/24/25 20:50 06/24/25 21:23 Influenza Type A Antigen Negative For Type A Influenza Type B Antigen Negative For Type B SARS-CoV-2, RNA, NAAT NEGATIVE SARS CoV-2 Group A Streptococcus Rapid negative (NEGATIVE) Urine Color LIGHT-YELLOW (YELLOW) Urine Appearance HAZY (CLEAR) Urine pH 8.0 (5.0-8.0) Urine Specific [place] 1.014 (1.001-1.031) Urine Protein NEGATIVE mg/dL (NEGATIVE) Urine Glucose (UA) NEGATIVE mg/dL (NEGATIVE) Urine Ketones NEGATIVE mg/dL (NEGATIVE) Urine Occult Blood NEGATIVE (NEGATIVE) Urine Nitrate NEGATIVE (NEGATIVE) Urine Bilirubin NEGATIVE mg/dL (NEGATIVE) Urine Urobilinogen 0.2 mg/dL (0.2-1.0) Urine Leukocyte Esterase NEGATIVE Nitza/uL Urine RBC 0-1 /HPF (0-1) Urine WBC 0-1 /HPF (0-1) Urine Squamous Epithelial Cells MOD /HPF (0-2) Urine Amorphous Crystals (Auto) FEW /LPF (None Seen) Urine Bacteria FEW /HPF (None Seen) Labs Reviewed?: Yes MDM MDM: Differential diagnosis: Viral illness, upper respiratory infection, pneumonia There are no social concerns with this patient. Prescription drug management Prescriptions will include:, Medrol pack azithromycin Medical management and examination interpretation discussions were had by me with other qualified healthcare professionals as indicated for the patient's care. ED Course Orders Procedure Category Date Status Time Covid Rna Naat LAB 06/24/25 Complete 20:57 Influenza Type A & B, LAB 06/24/25 Complete Rapid 20:57 Rapid (Group A Strep) LAB 06/24/25 Complete 20:57 Urinalysis Profile LAB 06/24/25 Complete 20:57 Chest 1vw RAD 06/24/25 Taken 21:11 0.9%Nacl 1000ml (Ns PHA 06/24/25 Complete 1000ml) 23:00 Ketorolac PHA 06/24/25 Complete Tromethamine 15mg/Ml 23:00 Dexamethasone 4mg/Ml PHA 06/24/25 Complete 1ml Vial (Dexametha 23:00 Current Medications Medications (Trade) Dose Ordered Sig/Lisa Route PRN Reason Start Time Stop Time Status Last Admin Dose Admin Dexamethasone Sodium Phosphate (dexaMETHasone 4MG/ML 1ML VIAL) 4 mg ONCE ONCE IV 06/24/25 23:00 06/24/25 23:01 DC 06/24/25 23:06 Ketorolac Tromethamine (toRADol) 15 mg ONCE ONCE IV 06/24/25 23:00 06/24/25 23:01 DC 06/24/25 23:06 Sodium Chloride 1,000 ml @ 0 mls/hr ONCE ONCE IV 06/24/25 23:00 06/24/25 23:01 DC 06/24/25 23:05 Vital Signs Date Time Temp Pulse Resp B/P (MAP) Pulse Ox O2 Delivery O2 Flow Rate FiO2 06/24/25 22:21 100.0 100 19 167/80 100 Room Air* 0 21 06/24/25 20:56 100.8 105 20 152/107 10 Room Air DX & DISP Disposition: Discharge Departure Impression: Primary Impression: Upper respiratory infection Condition: Stable Scripts Methylprednisolone (Medrol) 4 Mg Tab.ds.pk 1 TAB PO AD for 6 Days, #21 TAB 0 Refills 6 on day 1 then reduce by one tablet daily until gone Prov: JOE BARTON [facility] 06/24/25 Azithromycin (Azithromycin) 250 Mg Tablet 1 TAB PO AD for 5 Days, #6 TAB 0 Refills 2 the first day followed by 1 for days 2-5 Prov: JOE BARTON 06/24/25 Additional Instructions: You have tested negative for influenza a, influenza B, COVID-19, and strep. Your chest x-ray does not show any evidence of pneumonia. Your symptoms are most likely due to a virus. However, I will go ahead and prescribe you a short course of steroids and azithromycin to prevent pneumonia. Referrals: SELF,REFERRAL (PCP) I have reviewed the case, and I agree with, Diagnosis and Plan I performed the substantive portion of the visit. I have reviewed and personally made and approve the management plan that is documented in the note by myself or the DION. I acknowledge for responsibility for the patient's management plan. JOE BARTON Jun 24, 2025 23:19
--- NOTE | 2025-06-24 23:47 | HMCIMG ---
EXAM: CR Chest, 1 view CLINICAL HISTORY: Rule out pneumonia. COMPARISON: None provided. FINDINGS: The lungs show no infiltrates or other acute findings. No pleural effusion or pneumothorax. The cardiomediastinal silhouette is within normal limits. No acute osseous abnormality. IMPRESSION: No pneumonia or acute cardiopulmonary process is evident. /[place]
[2025-06-25 00:27] VITALS: BP 147/78; PULSE 92; RESP 17; TEMP 99.1; O2SAT 100
== END 2025-06-25 00:29 | disposition home or self-care (01) ==
LOC: EDH 20:55
DX: J06.9 Acute upper respiratory infection, unspecified (principal); Z20.822 Contact with and (suspected) exposure to COVID-19; I10 Essential (primary) hypertension; J45.909 Unspecified asthma, uncomplicated; E66.01 Morbid (severe) obesity due to excess calories; Z88.0 Allergy status to penicillin; Z79.52 Long term (current) use of systemic steroids; Z90.49 Acquired absence of other specified parts of digestive tract; Z90.710 Acquired absence of both cervix and uterus
CPT/HCPCS: 99284; 96374; 96375; 71045; 87635; 87880; 87804 ×2; 81001; J1100; J1885; J7030; J2405

== ENCOUNTER 2025-07-01 04:33 | Emergency (ER) | payer BC ==
[~2025-07-01] VITALS: Ht 157.5 cm; Wt 125.2 kg
[~2025-07-01 04:33] MED LIST changes: +AZIT250T9 PO
[2025-07-01] MEDS ORDERED: IOHEXOL 350 MG/ML 100ML INFUS..BTL IV ONE (04:34)
--- NOTE | 2025-07-01 04:49 | NUR ---
PT CARE ASSUMED AT THIS TIME
[2025-07-01 04:55] VITALS: TEMP 97.2
--- NOTE | 2025-07-01 05:13 | ERN ---
General Chief Complaint: Other Problems Stated Complaint: LUMP IN LEFT THROAT, TENDERNESS, DIFFICULTY SWALLO Time Seen by MD: 04:43 Source: patient History of Present Illness Initial Comments 34-year-old obese female comes in with left upper neck swelling in the area of the left mandibular salivary gland. The swelling is affecting her voice it is tender to touch. The mass/swelling also makes it difficult for her to swallow; however, she is clearing her oral secretions. She states no fevers no chills. She has a past medical history of idiopathic angioedema and also strep infection also pertinent dental abscess. Allergies: Coded Allergies: Penicillins (Unverified Allergy, Severe, THROAT SWELLING, 01/07/23) Home Meds Active Scripts Methylprednisolone (Medrol) 4 Mg Tab.ds.pk, 1 TAB PO AD for 6 Days, #21 TAB 0 Refills 6 on day 1 then reduce by one tablet daily until gone Prov:JOE BARTON [facility] 06/24/25 Azithromycin (Azithromycin) 250 Mg Tablet, 1 TAB PO AD for 5 Days, #6 TAB 0 Refills 2 the first day followed by 1 for days 2-5 Prov:JOE BARTON [facility] 06/24/25 Levofloxacin (Levofloxacin) 750 Mg Tablet, 750 MG PO DAILY for 10 Days, #10 TAB Prov:JONO TRACEY [facility] 07/05/23 Methylprednisolone (Medrol) 4 Mg Tab.ds.pk, 4 MG PO DAILY for 6 Days, #21 MG Prov:JONO TRACEY [facility] 07/05/23 Ibuprofen (Ibuprofen 800 mg Tab) 800 Mg Tab, 800 MG PO TID PRN for PAIN, #30 TAB Prov:CIARAN BLISS Jr. [facility] 06/29/23 Past Medical History Past Medical History: Asthma, Hypertension, Other Medical History Other: STREP INFECTION. Morbidly obese Past Surgical History: Hysterectomy, Cholecystectomy, Surgical History Other: h/o intubation, right ovarian cyst Family History Family History: HTN, Negative Social History Social History: Drugs, Lives with family Female( History) : 4 Para: 4 Aborts: 0 Constitutional: (-) chills, (-) diaphoresis, (-) fever, (-) malaise, (-) weakness, (-) other documentation EENTM: (-) eye pain, (-) blurred vision, (-) tearing, (-) double vision, (-) ear pain, (-) ear discharge, (-) nose pain, (-) nose congestion, (-) throat pain, (-) Throat swelling, (-) mouth pain, (-) tooth pain, (-) mouth swelling, (-) other documentation Respiratory: (-) cough, (-) orthopnea, (-) short of breath, (-) stridor, (-) wheezing, (-) other documentation Cardiovascular: (-) chest pain, (-) edema, (-) palpitations, (-) syncope, (-) dyspnea on exertion, (-) other documentation Gastrointestinal/Abdominal: (-) nausea, (-) vomiting, (-) diarrhea, (-) abdominal pain, (-) abdominal distention, (-) constipation, (-) rectal bleeding, (-) dark stool/melena, (-) other documentation Genitourinary: (-) vaginal discharge, (-) vaginal bleeding, (-) dysuria, (-) frequency, (-) hematuria, (-) pain, (-) other documentation Musculoskeletal: (-) Neck pain, (-) back pain, (-) Flank Pain, (-) joint pain, (-) joint swelling, (-) muscle pain, (-) muscle stiffness, (-) gout, (-) other documentation Skin: (-) laceration, (-) contusion, (-) abrasion, (-) abscess, (-) rash, (-) change in color, (-) change in hair, (-) change in nails, (-) diaphoresis, (-) dryness, (-) other documentation Physical Exam General Appearance: (+) mild distress Orientation: (+) alert, (+) oriented x 3 Head/Face Trauma: No Eye: bilateral eye normal inspection, bilateral eye PERRL, bilateral eye EOMI Ear, Nose, Throat: (+) hearing grossly normal Ear, Nose, Throat Comment Left submandibular swelling and tender mass. No surrounding erythema. Neck: (+) normal inspection, (+) supple, (+) full range of motion, (+) no JVD Respiratory: (+) chest non-tender, (+) lungs clear, (+) well ventilated Heart: (+) regular, (+) no gallop, (+) murmur Gastrointestinal: (+) soft, (+) non-tender, (+) bowel sound present Results Laboratory and Microbiology Lab and Micro Result Laboratory Tests Test 07/01/25 05:28 White Blood Count 8.8 K/uL (4.8-10.8) Red Blood Count 5.17 MIL/uL (4.00-5.50) Hemoglobin 14.0 g/dL (12.0-16.0) Hematocrit 45.4 % (36-48) Mean Corpuscular Volume 87.8 fL (79-99) Mean Corpuscular Hemoglobin 27.1 pg (27.0-33.0) Mean Corpuscular Hemoglobin Concent 30.8 g/dL (32.0-36.0) L Red Cell Distribution Width 16.3 % (11.0-15.5) H Platelet Count 284 K/uL (130-400) Mean Platelet Volume 11.3 fL (7.5-10.5) H Immature Granulocyte % (Auto) 0.5 % (0-1) Neutrophils (%) (Auto) 54.2 % (40.0-77.0) Lymphocytes (%) (Auto) 36.6 % (21.0-51.0) Monocytes (%) (Auto) 6.8 % (3.0-13.0) Eosinophils (%) (Auto) 1.7 % (0.0-8.0) Basophils (%) (Auto) 0.2 % (0.0-5.0) Neutrophils # (Auto) 4.8 K/uL (1.8-7.7) Lymphocytes # (Auto) 3.2 K/uL (1.0-4.8) Monocytes # (Auto) 0.6 K/uL (0.1-1.0) Eosinophils # (Auto) 0.15 K/uL (0.00-0.70) Basophils # (Auto) 0.02 K/uL (0.00-0.20) Absolute Immature Granulocyte (auto 0.04 K/uL (0-1) Nucleated Red Blood Cells 0.0 % (0.0-0.19) Red Blood Cell Morphology See comments Sodium Level 140 mmol/L (136-145) Potassium Level 4.2 mmol/L (3.5-5.1) Chloride Level 103 mmol/L (101-111) Carbon Dioxide Level 31 mmol/L (21-32) Blood Urea Nitrogen 11 mg/dL (7-18) Creatinine 0.6 mg/dL (0.5-1.0) Glomerular Filtration Rate Calc 121 mL/min (>90) Random Glucose 102 mg/dL (70-105) Total Calcium 11.0 mg/dL (8.5-10.1) H Labs Reviewed?: Yes EKG/XRAY/US/CT/MRI CT Scan Comment IMAGING REPORT Signed PATIENT: JOHN BUENO MR#: [id number] : 1990 SEX: F AGE: 34 LOCATION: [facility] ORDER 4 STATUS: [facility] REPORT#: [id number] SERVICE 2 REASON: swollen salivary gland left ORDERING PHYSICIAN: FANNIE CAMPOS MD PROCEDURE: NKSOFTI W - CT NECK SOFT TISS W/CONTRAST EXAMINATION: CT Neck with intravenous contrast. CLINICAL HISTORY: Swollen left salivary gland. TECHNIQUE: Axial CT of the neck with intravenous contrast. Multiplanar reformations were generated and reviewed. COMPARISON: None provided. FINDINGS: SALIVARY GLANDS: The left submandibular gland is diffusely enlarged, measuring 4 x 2.6 x 4.2 cm, with heterogeneous enhancement. No obvious necrosis. Significant surrounding fat stranding and inflammatory changes. An adjacent prominent vessel is evident. The right submandibular gland is normal. The bilateral parotid glands are normal. LYMPH NODES: Multiple small enhancing lymph nodes are noted in levels 1B, 2, and 3 around the left submandibular gland, the largest measuring 1.6 x 1.1 cm. Multiple tiny lymph nodes are also seen on the right in levels 1B and 2, and in bilateral posterior triangles/level V A. LUNGS AND MEDIASTINUM: The visualized upper sections of the lungs and mediastinum are normal. BONES: The visualized bones are normal. OTHER STRUCTURES: The rest of the structures in the neck are normal. IMPRESSION: Enlarged, enhancing left submandibular gland with surrounding inflammatory changes; features are in favor of sialoadenitis. No dilatation of the submandibular duct or submandibular calculus. Multiple enhancing left cervical lymph nodes in levels 1B, 2, and 3, the largest measuring 1.6 x 1.1 cm. /[place] DICTATED BY: PARAS HAWTHORNE Jr., MD DATE: 07/01/25731 ELECTRONICALLY SIGNED BY: PARAS HAWTHORNE Jr., MD DATE: 07/01/25731 IMAGING REPORT Signed PATIENT: JOHN BUENO MR#: [id number] : 1990 SEX: F AGE: 34 LOCATION: [facility] ORDER 4 STATUS: [facility] REPORT#: [id number] SERVICE 2 REASON: swollen salivary gland left ORDERING PHYSICIAN: FANNIE CAMPOS MD PROCEDURE: MAXFAHappify W - CT MAXILLOFACIAL W/CONTRAST EXAM: CT Maxillofacial with Intravenous Contrast. CLINICAL HISTORY: swollen salivary gland left. TECHNIQUE: Axial computed tomography images of the face with intravenous contrast. Sagittal and coronal reformatted images were generated. COMPARISON: None provided. FINDINGS: BONES: No acute fracture or aggressive appearing osseous lesion. The mandible is intact. SOFT TISSUES: The soft tissues are unremarkable. No radiopaque foreign body or focal fluid collection seen. The left submandibular gland is diffusely enlarged 4 x 3.5 x 4.2 cms with surrounding fat stranding and inflammatory changes. Multiple adjacent enhancing lymph nodes, the largest measuring 1.6 x 1.1 cms SINUSES: Very minimal mucosal thickening in the right maxillary sinus ORBITS: The orbits are normal. No retrobulbar hematoma or mass. IMPRESSION: Diffusely enlarged, enhancing left submandibular gland with adjacent inflammatory changes and enhancing lymph nodes; Features of sialoadenitis. Very minimal mucosal thickening in the right maxillary sinus. /[place] DICTATED BY: PARAS HAWTHORNE Jr., MD DATE: 07/01/25805 ELECTRONICALLY SIGNED BY: PARAS HAWTHORNE Jr., MD DATE: 07/01/25805 [facility] MDM: Differential diagnosis: Dental abscess, impacted salivary gland, swollen salivary gland, thyroid mass, Rationale: Tests considered and ordered secondary to shared decision making include: Previous outside records reviewed: Old ER visits. Risk of complication and/or morbidity or mortality of patient management: None Medications-Per medication reconciliation Need for hospitalization: Patient does meet criteria for hospitalization. Need for emergency major/minor surgery: No 34-year-old obese female comes in with left upper neck swelling in the area of the left mandibular salivary gland. The swelling is affecting her voice it is tender to touch. Patients laboratory work up within normal limits. I did advise her to follow up with pcp as soon as possible. Patient is tolerating oral intake. ED Course Orders Procedure Category Date Status Time Basic Metabolic Panel LAB 07/01/25 Complete 05:13 Cbc With Differential LAB 07/01/25 Complete 05:13 Ct Neck Soft Tiss CT 07/01/25 Resulted W/Contrast 05:[address] 07/01/25 Resulted W/Contrast 05:13 Vital Signs Date Time Temp Pulse Resp B/P (MAP) Pulse Ox O2 Delivery O2 Flow Rate FiO2 07/01/25 06:55 75 15 172/111 98 Room Air* 0 07/01/25 05:12 79 15 142/95 100 Room Air* 0 07/01/25 04:55 97.2 85 17 172/102 100 Room Air* 0 07/01/25 04:36 97.2 75 18 160/98 97 Room Air 0 DX & DISP Disposition: Discharge Departure Impression: Primary Impression: Sialadenitis Condition: Stable Scripts Naproxen (Naproxen) 500 Mg Tablet 1 TAB PO BID for pain for 7 Days, #14 TAB 0 Refills Prov: JOO TOLBERT MD 07/01/25 Clindamycin HCl (Clindamycin HCl) 300 Mg Capsule 1 CAP PO TID for 10 Days, #30 CAP 0 Refills Prov: JOO TOLBERT MD 07/01/25 Additional Instructions: FOLLOW-UP WITH PRIMARY CARE PROVIDER IN 1 TO 2 DAYS. TAKE MEDICATIONS DIRECTED HERE IN THE EMERGENCY ROOM. OKAY TO CONTINUE HOME MEDICATIONS UNLESS OTHERWISE DISCUSSED DURING YOUR VISIT IN THE EMERGENCY ROOM TODAY. RETURN TO YOUR NEAREST EMERGENCY ROOM IF SYMPTOMS WORSEN OR IF THERE IS NO IMPROVEMENT. CALL 911 IF YOU NEED IMMEDIATE ASSISTANCE. TAKE TYLENOL [id number] NEEDED AND IF NO CONTRAINDICATIONS ARE PRESENT. INCREASE ORAL HYDRATION. A W OUND CULTURE OR URINE CULTURE WAS ORDERED HERE IN THE EMERGENCY ROOM DEPARTMENT PLEASE FOLLOW-UP WITH PRIMARY CARE PROVIDER AND ADVISE THEM TO GET REPORTS FROM OUR FACILITY. IF YOU HAD ANY JUANA WRAP/SPLINTS THAT WERE APPLIED HERE, PLEASE DO NOT REMOVE THEM UNTIL YOU SEE YOUR PRIMARY CARE OR SPECIALTY. Referrals: Referrals: NONE (PCP) JOE MANTILLA MD, JAMES T MD Time of Disposition: 07:24 FANNIE CAMPOS MD Jul 01, 2025 05:13 JOO TOLBERT MD Jul 01, 2025 07:27
[2025-07-01 05:34] LABS: IMMATURE GRANULOCYTE ABSOLUTE 0.04 K/uL (0-1); NUCLEATED RED BLOOD CELLS 0.0 % (0.0-0.19); PLATELET COUNT (AUTO) 284 K/uL (130-400); RED BLOOD CELL COUNT(AUTO) 5.17 MIL/uL (4.00-5.50); RED CELL DISTRIBUTION WIDTH 16.3 % (11.0-15.5); WHITE BLOOD COUNT (AUTO) 8.8 K/uL (4.8-10.8)
[2025-07-01 05:46] LABS: CREATININE 0.6 mg/dL (0.5-1.0); GLOMERULAR FILTR. RATE CALC 121.0 mL/min (>90); GLUCOSE,RANDOM 102.0 mg/dL (70-105); SODIUM SERUM 140.0 mmol/L (136-145); UREA NITROGEN, BLOOD 11.0 mg/dL (7-18)
--- NOTE | 2025-07-01 06:33 | HMCIMG ---
EXAMINATION: CT Neck with intravenous contrast. CLINICAL HISTORY: Swollen left salivary gland. TECHNIQUE: Axial CT of the neck with intravenous contrast. Multiplanar reformations were generated and reviewed. COMPARISON: None provided. FINDINGS: SALIVARY GLANDS: The left submandibular gland is diffusely enlarged, measuring 4 x 2.6 x 4.2 cm, with heterogeneous enhancement. No obvious necrosis. Significant surrounding fat stranding and inflammatory changes. An adjacent prominent vessel is evident. The right submandibular gland is normal. The bilateral parotid glands are normal. LYMPH NODES: Multiple small enhancing lymph nodes are noted in levels 1B, 2, and 3 around the left submandibular gland, the largest measuring 1.6 x 1.1 cm. Multiple tiny lymph nodes are also seen on the right in levels 1B and 2, and in bilateral posterior triangles/level V A. LUNGS AND MEDIASTINUM: The visualized upper sections of the lungs and mediastinum are normal. BONES: The visualized bones are normal. OTHER STRUCTURES: The rest of the structures in the neck are normal. IMPRESSION: Enlarged, enhancing left submandibular gland with surrounding inflammatory changes; features are in favor of sialoadenitis. No dilatation of the submandibular duct or submandibular calculus. Multiple enhancing left cervical lymph nodes in levels 1B, 2, and 3, the largest measuring 1.6 x 1.1 cm. /[place]
[2025-07-01 06:55] VITALS: BP 172/111; PULSE 75; RESP 15; O2SAT 98
--- NOTE | 2025-07-01 07:05 | NUR ---
REPORT GIVEN TO PEPPER GARZA AT THIS TIME
--- NOTE | 2025-07-01 07:07 | HMCIMG ---
EXAM: CT Maxillofacial with Intravenous Contrast. CLINICAL HISTORY: swollen salivary gland left. TECHNIQUE: Axial computed tomography images of the face with intravenous contrast. Sagittal and coronal reformatted images were generated. COMPARISON: None provided. FINDINGS: BONES: No acute fracture or aggressive appearing osseous lesion. The mandible is intact. SOFT TISSUES: The soft tissues are unremarkable. No radiopaque foreign body or focal fluid collection seen. The left submandibular gland is diffusely enlarged 4 x 3.5 x 4.2 cms with surrounding fat stranding and inflammatory changes. Multiple adjacent enhancing lymph nodes, the largest measuring 1.6 x 1.1 cms SINUSES: Very minimal mucosal thickening in the right maxillary sinus ORBITS: The orbits are normal. No retrobulbar hematoma or mass. IMPRESSION: Diffusely enlarged, enhancing left submandibular gland with adjacent inflammatory changes and enhancing lymph nodes; Features of sialoadenitis. Very minimal mucosal thickening in the right maxillary sinus. /[place]
[2025-07-01] MEDS ORDERED: CLIN-141 PO (07:26)
[2025-07-01] MEDS ORDERED: NAPR-1194 PO (07:26)
== END 2025-07-01 07:55 | disposition home or self-care (01) ==
LOC: EDH 04:33
DX: K11.20 Sialoadenitis, unspecified (principal); E66.01 Morbid (severe) obesity due to excess calories; I10 Essential (primary) hypertension; J45.909 Unspecified asthma, uncomplicated; Z79.52 Long term (current) use of systemic steroids; Z88.0 Allergy status to penicillin; Z90.49 Acquired absence of other specified parts of digestive tract; Z90.710 Acquired absence of both cervix and uterus
CPT/HCPCS: 99285; 70487; 80048; 85025; 36415; 70491; Q9967